=== PATIENT | female | born 1995 | race Caucasian/White ===

== ENCOUNTER 2018-05-19 06:48 | Inpatient (IN) | payer OTHER ==
[~2018-05-19] VITALS: Ht 154.9 cm; Wt 80.0 kg
--- NOTE | 2018-05-19 10:12 | PR ---
[facility] [address] [facility] [place] [address] Signed Progress Notes IP Datetime Report Generated by CPN: 05/19/2018 10:11 PROGRESS NOTES: [id number] VITAL SIGNS: [id number] Vital Signs: Reviewed; Within Normal Limits EXAM: [id number] Dilatation: 5.0 Effacement: 90 Station: -1 MEMBRANES: [id number] Membrane Status: Ruptured Amniotic Fluid Color: Clear ROM Note: AROM without difficulty Comments: Continue monitoring Fetus A: [id number] FHR Baseline: 130 Variability: Moderate 6-25bpm Accelerations: 15X15 Decelerations: None Presentation: Vertex Fetus B: [id number] Signing Physician: Ana Bass MD Copies: ~ *Electronically Signed* 05/19/18 1011 ANA BASS MD PATIENT NAME: RISHI MACIAS PROGRESS NOTE DATE OF : [birth year] PHYSICIAN: ANA BASS MD RPT #: [id number] REPORT IS CONFIDENTIAL AND NOT TO BE RELEASED WITHOUT AUTHORIZATION
--- NOTE | 2018-05-19 11:54 | PR ---
[facility] [address] [facility] [place] [address] Signed Progress Notes IP Datetime Report Generated by CPN: 05/19/2018 11:54 PROGRESS NOTES: [id number] Impression: Normal progression of labor Plan: Continue present management; Anticipate Vaginal Delivery VITAL SIGNS: [id number] Vital Signs: Reviewed; Within Normal Limits EXAM: [id number] Dilatation: 8.0 Effacement: 100 Station: -1 Uterine Contractions: every 3-4 minutes MEMBRANES: [id number] Membrane Status: Ruptured Amniotic Fluid Color: Clear ROM Note: AROM without difficulty Comments: Getting more uncomfortable, given IV Fentanyl and Phenergan x1 Fetus A: [id number] FHR Baseline: 135 Variability: Moderate 6-25bpm Accelerations: 15X15 Decelerations: Variable Presentation: Vertex Fetus B: [id number] Signing Physician: Ana Bass MD Copies: ~ *Electronically Signed* 05/19/18 1154 ANA BASS MD PATIENT NAME: RISHI MACIAS PROGRESS NOTE DATE OF : [birth year] PHYSICIAN: ANA BASS MD RPT #: [id number] REPORT IS CONFIDENTIAL AND NOT TO BE RELEASED WITHOUT AUTHORIZATION
--- NOTE | 2018-05-20 13:04 | PR ---
[facility] [address] [facility] [place] [address] Signed PP Progress Notes Datetime Report Generated by CPN: 05/20/2018 13:04 SUBJECTIVE: [id number] Pain: Within normal limits Nausea/Vomiting: Denies Vital Signs: [id number] Vital Signs: Reviewed; Within Normal Limits Notable Details: PP HGb/Hct = 8.2/25.6 EXAM: [id number] Abdomen/Uterus: Normal Lochia: Normal Extremities: Normal IMPRESSION/PLAN/PROCEDURES: [id number] Impression: Normal progression Other Impression: PP Anemia Plan: Discharge Procedures: None Progress Notes: Doing well, wants to go home. Signing Physician: Ana Bass MD Copies: ~ *Electronically Signed* 05/20/18 1304 ANA BASS MD PATIENT NAME: RISHI MACIAS PROGRESS NOTE DATE OF : [birth year] PHYSICIAN: ANA BASS MD RPT #: [id number] REPORT IS CONFIDENTIAL AND NOT TO BE RELEASED WITHOUT AUTHORIZATION
== END 2018-05-20 17:00 | disposition home or self-care (01) | DRG 775 ==
LOC: FBCO 06:48 → FBC 08:30
PROVIDERS: ADMIT General Practice
PROC: 10E0XZZ Delivery of Products of Conception, External Approach (ICD-10-PCS; principal; 2018-05-19)
PROC: 0UQMXZZ Repair Vulva, External Approach (ICD-10-PCS; 2018-05-19)
DX: O69.81X0 Labor and delivery complicated by cord around neck, without compression, not applicable or unspecified (principal); O71.82 Other specified trauma to perineum and vulva; Z3A.38 38 weeks gestation of pregnancy; Z37.0 Single live birth
CPT/HCPCS: 36415; 82803; 85027

== ENCOUNTER 2023-09-18 06:43 | Day surgery (SDC) | payer BC ==
[2023-09-12 16:15] VITALS: BP 117/75
[~2023-09-18] VITALS: Ht 154.9 cm; Wt 102.3 kg
--- NOTE | ~2023-09-18 | OR ---
[facility] [address] [place], [place] [address] Draft DATE OF OPERATION: 09/18/2023 SURGEON: Tra Vega DO PREOPERATIVE DIAGNOSES: 1. Abnormal uterine bleeding. 2. Dysmenorrhea. 3. Iron-deficiency anemia. POSTOPERATIVE DIAGNOSES: 1. Abnormal uterine bleeding. 2. Dysmenorrhea. 3. Iron-deficiency anemia. PROCEDURES PERFORMED: 1. Total laparoscopic hysterectomy. 2. Bilateral salpingectomy. 3. Cystoscopy. SHANK ARCHER: Soraida Edward M.D. ANESTHESIA: General. ESTIMATED BLOOD LOSS: 25 mL. SPECIMENS: Uterus, tubes bilaterally, and cervix. DRAINS: Cheema to gravity. FINDINGS: Normal external genitalia with normal clitoris, urethral meatus, bilateral [place]'s and Bartholin's glands. Normal vagina and cervix; however, there is some apical relaxation of the cervix. On laparoscopy, normal liver and appendix. Normal uterus and ovaries bilaterally. Status post tubal ligation. Hemostatic with excellent apical support at the end of the procedure. Normal bladder with bilateral ureteral jets on cystoscopy. PATIENT NAME: RISHI ARMENDARIZ OPERATIVE REPORT DATE OF : [birth year] REPORT #: [id number] PHYSICIAN: TRA VEGA) PCP: LESLI VILLARREAL PA-C REPORT IS CONFIDENTIAL AND NOT TO BE RELEASED WITHOUT AUTHORIZATION [address] [place] [address] [place] COMPLICATIONS: None. INDICATIONS: Mrs. Armendariz is a very pleasant 28-year-old, G3, P2 female, who presents for worsening abnormal uterine bleeding and dysmenorrhea. She failed conservative measures and is requesting definitive diagnoses. Definitive treatment with total laparoscopic hysterectomy, bilateral salpingectomy, and cystoscopy. She is status post tubal ligation. Risks, benefits, and alternatives were discussed in detail with the patient. The patient understands and wished to proceed with the procedure. DESCRIPTION OF PROCEDURE: The patient was taken to the operating room, where time-out was performed to confirm correct patient and correct procedure. General anesthesia was adequately established. The patient was prepped and draped in the dorsal lithotomy position with her feet in Yellofin stirrups. ICPs were on and running. The patient received Ancef 2 g preoperatively and heparin was not indicated. A weighted speculum was placed in the vagina after the insertion of Cheema catheter. The anterior lip of the cervix was then grasped with an Allis clamp and the cervix was gently dilated using Hegar dilators. A VCare uterine manipulator was placed without difficulty. The surgeon's gloves were changed. Attention was turned to the abdomen. Just inferior to the umbilicus, there was a prior laparoscopic scar, this was infiltrated with 0.25% Marcaine with epinephrine and the skin was incised using a surgical scalpel. The fascia was grasped, elevated, and entered sharply using Metzenbaum scissors. Stay sutures of 0-Vicryl placed in the superior and inferior aspects of the infraumbilical fascial incision. The peritoneum was entered bluntly. A Barb operative port was then placed without difficulty. Pneumoperitoneum was established. Survey of the abdomen and pelvis was performed that demonstrated no intra-abdominal adhesions. Normal liver and appendix as well as normal-appearing uterus and ovaries. She is status post tubal ligation. A 5 mm catering assistant port was placed in left lower quadrant under direct visualization without complication. An 8 mm expanding port was placed in the right lower quadrant under direct visualization without complication. The left uteroovarian ligament was fulgurated and divided with excellent hemostasis. The left fallopian tube was divided along the mesosalpinx and delivered with excellent hemostasis. The left round ligament was fulgurated, divided and the leaves of the broad ligament were divided. The anterior leaf was divided from the midportion of the round to the anterior edge of the vaginal cup. This was carried across the anterior edge of the vaginal cup with excellent dissection and the bladder was pushed well below. The posterior leaf of the broad ligament was divided from the midportion of the round ligament to the uterosacral ligament and carried across the posterior edge of the vaginal cup. The uterine vessels were identified, fulgurated, and divided with excellent hemostasis. The process was PATIENT NAME: RISHI ARMENDARIZ OPERATIVE REPORT DATE OF : [birth year] REPORT #: [id number] PHYSICIAN: TRA VEGA) PCP: LESLI VILLARREAL PA-C REPORT IS CONFIDENTIAL AND NOT TO BE RELEASED WITHOUT AUTHORIZATION [address] [address] [place] repeated on the right side with the division of the fallopian tube along the mesosalpinx, fulguration, division of the utero-ovarian ligament and fulguration and division of the round ligament. The leaves of the broad ligament on the right were also dissected from the midportion of the round ligament to the anterior edge of the vaginal cup to the uterosacral ligament posteriorly. The right uterine vessels were identified, fulgurated and divided with excellent hemostasis. Colpotomy was performed using Sonicision in a circumferential manner, amputating the cervix from the upper vagina. The uterus and cervix were delivered through the vagina and sent to Pathology for further evaluation. Pneumoperitoneum was re-established by placing a wet laparoscopic sponge inside of a glove into the vagina. The pelvis was irrigated and found to be hemostatic. Colpotomy was reapproximated using V-Loc suture with an Endostitch device with careful attention to incorporate the uterosacral ligaments bilaterally as well as to incorporate the vaginal epithelium with each stitch. Excellent hemostasis and apical support was appreciated at the end of this. The pelvis was again irrigated and found to be hemostatic. Tisseel was applied to the dissection areas and pneumoperitoneum was slowly reduced demonstrating continued hemostasis. Trocars were removed and infraumbilical fascia was reapproximated using 0-Vicryl in a running nonlocked manner. Stay sutures were then plicated in the midline to reinforce the fascial repair. The skin was reapproximated using 4-0 Monocryl in a subcuticular stitch with excellent hemostasis and cosmesis. Attention was turned to cystoscopy. The Cheema catheter was removed and a 70-degree cystoscope was placed in the urethral meatus and advanced under direct visualization to the bladder. Normal bladder, bladder dome and bilateral ureteral jets were appreciated. The bladder was drained. Cheema catheter was reinserted. The patient was taken to PACU in good and stable condition. Sponge, needle, and instrument counts correct x2 at the end of the procedure. Dr. Edward was present and participated in all portions of the procedure. DO MARQUITA Mckinney/DIMITRI /[id number] Copies: PATIENT NAME: RISHI ARMENDARIZ OPERATIVE REPORT DATE OF : [birth year] REPORT #: [id number] PHYSICIAN: TRA VEGA DO (JD) PCP: LESLI VILLARREAL PA-C REPORT IS CONFIDENTIAL AND NOT TO BE RELEASED WITHOUT AUTHORIZATION [address] [place], [place] [address] Draft ~ PATIENT NAME: RISHI ARMENDARIZ OPERATIVE REPORT DATE OF : [birth year] REPORT #: [id number] PHYSICIAN: TRA VEGA) PCP: LESLI VILLARREAL PA-C REPORT IS CONFIDENTIAL AND NOT TO BE RELEASED WITHOUT AUTHORIZATION
[~2023-09-18 06:43] MED LIST: MESALAMINE PO; REMICADE100 MG/10 IV; REXULTI2 MG PO; WELLBUTRIN SR100 MG PO
[2023-09-18 07:00] VITALS: BP 119/66
--- NOTE | 2023-09-18 07:33 | NUR ---
PT AND BOTH IN GOOD SPIRITS. PRAYED FOR SUCCESSFUL PROCEDURE AND RANGEL RECOVERY.
--- NOTE | 2023-09-18 11:38 | NUR ---
09/18/23 1138 Charmaine Aranda 1115 PT ARRIVED IN PACU NON RESPONSIVE TO NOXIOUS STIMULI WITH OPA IN PLACE. CERON CATHETER PRESENT WITH NEON YELLOW URINE. 1131 PT REACTIVE. OPA REMOVED. 1135 DR AT BEDSIDE. ALL QUESTIONS ANSWERED. WILL RETURN BEFORE DC TO TALK TO PT/SPOUSE.
[2023-09-18 12:10] VITALS: BP 109/65
--- NOTE | 2023-09-18 12:33 | NUR ---
1210: PT RETURNS TO UNIT FROM PACU. AWAKE AND ALERT ON ARRIVAL. VSS, RESP EVEN AND UNLABORED. REPORTS YOKO PAIN LEVEL 2/10 AND DENIES NAUSEA. ABD LAP SITES C/D/I. PT WITH URGE TO VOID. DANGLED AT THE BEDSIDE, YOKO WELL. DENIES DIZZINESS AND SOB. AMBULATES TO BR WITH STANDBY FROM IRIS SEGOVIA. STEADY GAIT. SUCCESSFUL FIRST POSTOP VOID. UNMEASUREABLE BUT QUANTITY SUFFICIENT. BACK INTO STRETCHER. SCDS IN PLACE. ICE WATER AND PUDDING PROVIDED. POC DISCUSSED AND PT AGREEABLE. NO NEEDS VOICED. AT THE BEDSIDE, CALL LIGHT WITHIN REACH
[2023-09-18 13:46] VITALS: BP 101/61
--- NOTE | 2023-09-18 13:46 | NUR ---
IN PT ROOM FOR ASSESSMENT AND VS. PT REPORTS PAIN 3.5/10 AND STATES THIS IS TOLERABLE AT THIS TIME. PT REPORTS NO NAUSEA, DIZZINESS, N/T AT THIS TIME. PT UP TO BATHROOM FOR URINE VOID, STANDBY ASSIST, 100 ML BRIGHT YELLOW OUTPUT. PT BACK TO BED. SURGICAL INCISION SITES ASSESSED. UMBILICAL SITE HAS MODERATE AMOUNT OF SS DRAINAGE, NEW BANDAID AND GAUZE IN PLACE. STOMACH REMAINS SOFT. X2 OTHER SURGICAL SITES HAVE SMALL AMOUNT OF SS DRAINAGE, BANDAID AND SS IN PLACE. PT GETTING DRESSED AT THIS TIME, IN ROOM TO ASSIST. CALL LIGHT WITHIN REACH.
--- NOTE | 2023-09-18 13:50 | NUR ---
IN PT ROOM TO ANSWER CALL LIGHT, PT STATES PAIN HAS INCREASED TO 7/10 AND PT APPEARS VISIBLY UNCOMFORTABLE AT THIS TIME. JOHN SIMMONS UPDATED, PRN PAIN MED GIVEN (SEE EMAR). ICE WATER AND WARM BLANKETS PROVIDED, CALL LIGHT WITHIN REACH, NO FURTHER NEEDS AT THIS TIME.
[2023-09-18 14:15] VITALS: BP 106/56
--- NOTE | 2023-09-18 15:02 | NUR ---
1415: PT AWAKE AND ALERT IN STRETCHER REQUESTING DC. REPORTS IMPROVED PAIN CONTROL, 2/10. VSS, RESP EVEN AND UNLABORED. UMBILICAL LAP SITE WITH SMALL AMOUNT OF RED SHADOWING. SL REMOVED WITH CATH TIP INTACT AND PRESSURE APPLIED TO SITE, WNL. DC INSTRUCTIONS PROVIDED AND DISCUSSED AND PT VOICES UNDERSTANDING. DENIES QUESTIONS AND CONCERNS. 1435: PT WHEELED OFF OF UNIT BY THIS RN. TRANSFERS INTO VEHICLE INDEPENDENTLY AND APPROPRIATELY. NO PHYSICAL S/S OF DISTRESS AT THIS TIME
--- NOTE | 2023-09-24 17:25 | PATH ---
[facility] [address] [place], [place] [address] Signed SPECIMEN(S): A UTERUS, CERVIX, BILATERAL TUBES SPECIMEN SOURCE: A. UTERUS, CERVIX, BILATERAL TUBES CLINICAL HISTORY: Abnormal uterine bleeding, iron deficiency. FINAL PATHOLOGIC DIAGNOSIS: Uterus, cervix, and bilateral tubes: - Benign proliferative endometrium, negative for hyperplasia or atypia. - Benign endo- and ectocervix. - Benign fimbriated oviducts. KarenVR:sagrario MICROSCOPIC EXAMINATION: Histologic sections of all submitted blocks are examined by light microscopy. These findings, together with the gross examination, support the pathologic diagnosis. GROSS DESCRIPTION: The specimen, labeled and designated "[place], uterus, cervix, bilateral fallopian tubes," is received in formalin and consists of uterus and cervix with unattached and unoriented bilateral fallopian tubes. The uterus measures 5 cm from cornu to cornu, 3.8 cm anterior to posterior and 7.0 cm from cervix to fundus. The serosal surface is pink-morejon, smooth. The uterus weighs 83 grams. The ectocervix is pink-morejon, smooth with an area of roughening around the cervical canal opening. It is measuring 3.5 x 3.6 cm. Sectioning through the cervix reveals pink-morejon homogenous tissue. The endometrial cavity is triangular shaped and measures 3.0 x 2.2 cm. The endometrium is pink-red and shaggy. Sectioning through the myometrium reveals pink-morejon homogenous tissue. No masses or abnormalities are grossly identified. The myometrium measures 1.7 cm in thickness. The endometrium measures up to 0.3 cm in thickness. Both fallopian tubes show fimbria and violaceous and smooth serosa. The first fallopian tube measures 5.0 cm in length and 0.6 cm in diameter. The second fallopian tube measures 4.5 cm in length and 0.6 cm in diameter. Sectioning through both fallopian tubes is grossly unremarkable. PATIENT NAME: RISHI MACIAS PATHOLOGY DATE OF : [birth year] REPORT #: [id number] PHYSICIAN: [facility] PCP: LESLI VILLARREAL PA-C REPORT IS CONFIDENTIAL AND NOT TO BE RELEASED WITHOUT AUTHORIZATION [facility] [address] [place], [place] [address] Signed Cassette Summary: (A1) cervix, community relations representative sections, posterior inked (A2) endomyometrium, community relations representative sections (A3) first fallopian tube, community relations representative sections (A4) second fallopian tube, community relations representative sections JS (under the direct supervision of a pathologist) The Gross Description was prepared using a voice recognition system. The report was reviewed for accuracy; however, sound-alike word errors, addition and/or deletions may occur. If there is any question about this report, please contact Client Services. PERFORMING LABORATORY: Technical component was performed by [facility], [address] [place] [id number] (CLIA# [id number]). Professional interpretation was performed by [facility], [address] [place] [id number] (CLIA#: [id number]). Diagnostician: David Zarate MD Pathologist Electronically Signed 09/24/2023 Copies: ~ PATIENT NAME: RISHI MACIAS PATHOLOGY DATE OF : [birth year] REPORT #: [id number] PHYSICIAN: [facility] PCP: LESLI VILLARREAL PA-C REPORT IS CONFIDENTIAL AND NOT TO BE RELEASED WITHOUT AUTHORIZATION
== END 2023-09-18 14:35 | disposition home or self-care (01) ==
LOC: DS 06:43 → OPS 06:43 → DS 07:30 → OPS 09:15 → DS 09:30 → OPS 09:30
PROVIDERS: ATTEND Obstetrics & Gynecology
PROC: 0UT94ZZ Resection of Uterus, Percutaneous Endoscopic Approach (ICD-10-PCS; principal; 2023-09-18 09:15)
PROC: 0UB74ZZ Excision of Bilateral Fallopian Tubes, Percutaneous Endoscopic Approach (ICD-10-PCS; 2023-09-18 09:15)
DX: N93.9 Abnormal uterine and vaginal bleeding, unspecified (principal); D50.9 Iron deficiency anemia, unspecified; F31.9 Bipolar disorder, unspecified; K90.0 Celiac disease; K21.9 Gastro-esophageal reflux disease without esophagitis; Z88.1 Allergy status to other antibiotic agents
CPT/HCPCS: 00840; J0131; J1100; J1885; J2001; J2250; J2704; J3010; J3490; J7121